=== PATIENT | female | born 1940 | race Caucasian/White ===

== ENCOUNTER 2019-06-17 12:10 | Inpatient (IN) ==
[2019-06-17 13:38] LABS: BASO# 0.06 X1000 (0.0-0.2); BASO% 0.3 % (0.0-0.8); EOS# 0.76 X1000 (0.0-0.7); EOS% 3.5 % (0.0-10.0); HEMATOCRIT 30.3 % (37.0-47.0); HEMOGLOBIN 10.5 g/dL (12.0-16.0); LYMPH# 4.38 X1000 (1.2-3.4); LYMPH% 20.3 % (20.5-51.1); MCH 29.8 PG (27-31); MCHC 34.7 g/dL (33-37); MCV 86.1 FL (81-99); MONO# 1.41 X1000 (0.11-0.59); MONO% 6.5 % (1.7-9.3); MPV 11.4 FL (7.4-10.4); NEUT# 14.98 X1000 (1.4-6.5); NEUT% 69.4 % (42.2-75.2); PLT 265 X1000 (130-400); RBC 3.52 XMIL (4.2-5.4); WBC 21.59 X1000 (4.8-10.8)
--- NOTE | 2019-06-17 14:18 | EKG Report ---
Test Performed on : 06/17/2019 12:29:21 PM Test Reason : ABNORMAL LABS Blood Pressure : / mmHG Vent. Rate : 079 BPM Atrial Rate : 133 BPM P-R Int : 000 ms QRS Dur : 130 ms QT Int : 362 ms P-R-T Axes : 000 -86 050 degrees QTc Int : 415 ms Atrial fibrillation. with occasional ventricular-paced complexes Right bundle branch block Left anterior fascicular block Bifascicular block Abnormal ECG When compared with ECG of 02-DEC-2018 23:33, Vent. rate has increased BY 5 BPM Unconfirmed Result
--- NOTE | 2019-06-17 14:27 | Diag Imaging Result Doc PS360 ---
EXAM: CHEST-1 VIEW 06/17/2019 HISTORY: sepsis TECHNIQUE: AP portable at 1414 COMMENT: There are bilateral pleural fluid collections. There is cardiomegaly. There is alveolar and interstitial pulmonary edema. These findings have worsened since 10/10/2015. IMPRESSION: Pulmonary edema cardiomegaly and pleural effusions. The possibility of superimposed pneumonia cannot be excluded. Electronically signed by Silver Dunaway 06/17/2019 2:25 PM
[2019-06-17 15:04] LABS: ALB/GLOB RATIO 1.3; ALBUMIN 3.5 g/dL (3.5-5.0); CALCIUM 7.3 mg/dL (8.8-10.2); CK INDEX 5.4 (0.0-2.5); CK-MB 9.82 ng/mL (0.0-5.0); CREATININE 3.4 mg/dL (0.5-0.9); POTASSIUM 4.5 mmol/L (3.5-5.1); TOTAL BILIRUBIN 0.43 mg/dL (0.20-1.00); TOTAL PROTEIN 6.1 g/dL (6.3-8.3)
[2019-06-17] MEDS ORDERED: ZOSYN 2.25 GM in NS 50 ML IV ONE (16:11)
[2019-06-17] MEDS ORDERED: XYLOCAINE-MPF 1% 5 ML ONE (16:48)
[2019-06-17 17:16] LABS: CK INDEX 6.1 (0.0-2.5); CK-MB 11.02 ng/mL (0.0-5.0)
[2019-06-17 17:23] LABS: INR 2.35; PROTIME 26.4 Seconds (11.0-16.0)
[2019-06-17 17:24] LABS: PTT 62.6 Seconds (22.3-41.8)
[2019-06-17 18:07] LABS: URINE SOURCE CLEAN CATCH
[2019-06-17 18:11] LABS: BILIRUBIN URINE NEGATIVE (NEGATIVE); BLOOD URINE TRACE (NEGATIVE); COLOR YELLOW; GLUCOSE URINE NEGATIVE (NEGATIVE); KETONE URINE NEGATIVE (NEGATIVE); LEUKOCYTES URINE LARGE (NEGATIVE); NITRITE URINE NEGATIVE (NEGATIVE); PROTEIN URINE NEGATIVE (NEGATIVE); SP GRAVITY URINE 1.006; TURBIDITY URINE HAZY (CLEAR); UR EPITHELIAL CELLS <10 /HPF (<10); URINE BACTERIA NEGATIVE /HPF; URINE RBC <10 /HPF (<10); URINE WBC 20-40 /HPF (<10); UROBILINOGEN URINE NORMAL (NORMAL)
--- NOTE | 2019-06-17 18:47 | PROVIDER DOCUMENTATION ---
This chart was entered by Sudha Tom Scribe, acting as scribe for Mahsa Bush MD. HPI-General Adult - General Chief Complaint: Abnormal Lab[s] Stated Complaint: abnormal labs Time Seen by Provider: 06/17/19 13:21 Source: patient Allergies/Adverse Reactions: Patient Allergies Allergy/AdvReac Type Severity Reaction Status Date / Time captopril [From Capoten] Allergy Severe Unknown Verified 07/19/18 13:44 Latex, Natural Rubber Allergy Severe ITCHING Verified 07/19/18 13:44 AND RASH morphine Allergy Severe ANAPHYLAXIS Verified 07/19/18 13:44 Penicillins Allergy Severe ANAPHYLAXIS Verified 07/19/18 13:44 pyridoxine Allergy Severe Unknown Verified 07/19/18 13:44 Sulfa (Sulfonamide Allergy Severe ITCH Verified 07/19/18 13:44 Antibiotics) adhesive AdvReac Intermediate RASH Verified 07/19/18 13:44 Home Medications: Home Medication List Medication Instructions Recorded Confirmed Last Taken Type Levothyroxine [Synthroid] 100 microgm PO QAM 05/31/13 06/17/19 06/17/19 History 100 MICROGM Ropinirole HCl [Requip] 1 mg PO HS 05/31/13 06/17/19 06/16/19 History 1 MG Digoxin [Digox] 125 mcg PO QAM 10/26/14 06/17/19 06/17/19 History 125 MCG Duloxetine [Cymbalta] 90 mg PO QAM 10/26/14 06/17/19 06/17/19 History 90 MG Potassium Chloride E.r. [Klor-Con] 20 meq PO 4XDAY 12/07/14 06/17/19 06/17/19 History 20 MEQ Esomeprazole [Nexium] 20 mg PO DAILY 01/01/15 06/17/19 06/17/19 History 20 MG Furosemide [Lasix] 80 mg PO BID 11/26/15 06/17/19 06/17/19 History 80 MG Acetaminophen [Pain Relief] 500 mg PO Q4HR PRN 05/30/16 06/17/19 06/16/19 History 500 MG Ascorbic Acid [Vitamin C] 500 mg PO QAM 05/30/16 06/17/19 06/17/19 History 500 MG Docusate Sodium 100 mg PO QAM PRN 09/06/17/19 06/17/19 History 100 MG Latanoprost 0.005% Oph Soln 1 drop BOTH EYES HS 05/30/16 06/17/19 06/17/19 History [Xalatan 0.005% Oph Soln] 1 DROP Lorazepam 1 mg PO QHS 05/30/16 06/17/19 06/16/19 History 1 MG Metolazone 2.5 mg PO QPM 05/30/16 06/17/19 06/17/19 History 2.5 MG Hydrocodone/APAP 5 mg/325 mg 1 each PO Q6H PRN PRN #12 tablet 05/31/16 06/17/19 06/17/19 Rx [[place]-5] 1 EACH Bimatoprost [Lumigan] 2 drp OPHTHALMIC (EYE) DAILY 06/17/19 06/17/19 06/17/19 History 2 DRP Carvedilol [Coreg] 3.125 mg PO BID 06/17/19 06/17/19 06/17/19 History 3.125 MG Cholecalciferol (Vitamin D3) 400 unit PO BID 06/17/19 06/17/19 06/17/19 History [Vitamin D] 400 UNIT Levofloxacin 250 mg PO DAILY 06/17/19 06/17/19 06/17/19 History 250 MG Loratadine 10 mg PO DAILY 06/17/19 06/17/19 06/17/19 History 10 MG Sucralfate [Carafate] 1 gm PO TID 06/17/19 06/17/19 06/17/19 History 1 GM - History of Present Illness -Gen Adult Nature of Presenting Problems: Pt is a 78 yof who presents to the ED via EMS for abnormal labs. EMS reports jail stated pt had abnormal cardiac enzymes. Pt denies chest pain. Reports pain to buttock. Location of Pain/Injury: reports: other (buttock) Onset/Duration: reports: unsure Timing: reports: still present Associated Symptoms: reports: denies symptoms Similar Symptoms Previously?: Yes Recently seen or treated by another doctor?: No Review of Systems - Adult - REVIEW OF SYSTEMS - ADULT Constitutional: reports: no symptoms reported. denies: fever, fatique Eyes: reports: no symptoms reported Ears, Nose, Mouth & Throat: reports: no symptoms reported Cardiovascular: reports: no symptoms reported. denies: chest pain, irregular heart rate, palpitations Respiratory: reports: no symptoms reported Gastrointestinal: reports: no symptoms reported Genitourinary: reports: no symptoms reported Musculoskeletal: reports: no symptoms reported Integumentary: reports: no symptoms reported Neurological: reports: no symptoms reported Psychiatric: reports: no symptoms reported Endocrine: reports: no symptoms reported Hematologic/Lymphatic: reports: no symptoms reported Allergic/Immunologic: reports: no symptoms reported All Other Systems: Reviewed and Negative Past History - Adult - PAST MEDICAL HISTORY-ADULT Review of Records: reports: Old Records Reviewed, Social history reviewed & non- contributory. Major Childhood Illnesses: reports: denies history Cardiovascular: reports: cardiac disease, A-Fib, CHF, pacemaker Respiratory: reports: denies history, sleep apnea Gastrointestinal: reports: GERD, other (gastric bypass) Obstetrical/Gynecological: reports: denies history Genitourinary: reports: denies history Musculoskeletal: reports: denies history Neurological: reports: other (Carpal tunnel) Psychiatric: reports: depression Endocrine/Immune: reports: thyroid disorder (hypothyroid) Other Conditions: reports: denies history - PRIOR SURGERIES/PROCEDURES Surgical/Procedure History: reports: appendectomy, CABG, cholecystectomy, p acemaker, hysterectomy, , tonsillectomy, orthopedic (extremity), joint replacement (hip) - IMMUNIZATION STATUS Childhood Immunizations: See Nurse Assessment Flu Vaccine: See Nurse Assessment - FAMILY HISTORY Family History: reviewed, not pertinent - SOCIAL HISTORY Smoking: cigarettes (former) Substance Use: denies Living Situation: care facility (SNF) Physical Exam-General - PHYSICAL EXAM-ADULT Initial Vital Signs Reviewed: Yes - CONSTITUTIONAL General Appearance: appears well, alert, no apparent distress. negative: lethargic - EYES Eyes: PERRL/EOMI, pink conjunctivae. negative: anisocoria, conjuctival exudate - HEAD, EARS, NOSE, MOUTH & THROAT HENMT: normocephalic/atraumatic, moist mucous membranes - NECK Neck: non-tender, normal inspection - RESPIRATORY Respiratory: chest non-tender, rhonchi. negative: crackles, wheezing - CARDIOVASCULAR Cardiovascular: normal peripheral pulses, regular rate, rhythm. negative: bradycardia, tachycardia - GASTROINTESTINAL (ABDOMEN) Abdominal Exam: normal bowel sounds, non tender, soft, other (tympanic percussion). negative: tenderness - LYMPHATIC Lymphatic: no adenopathy - MUSCULOSKELETAL Back Exam: no CVA tenderness, no vertebral tenderness Extremity: other (Bilateral bunions and hemorrhagic blisters) - SKIN Integumentary: abrasion(s), decubitus (stage 2 skin ulcer to sacral region), ecchymosis, swelling - NEUROLOGIC Neurologic: grossly normal, no motor/sensory deficits. negative: facial droop, focal weakness - PSYCHIATRIC Psych/Mental Status: normal thought content, anxious Progress - PLAN OF CARE/RESULTS Progress/Plan/Lab Results: Vital Signs - 8 hr 06/17/19 12:29 Temperature 97.8 F Pulse Rate 88 Respiratory Rate 16 Blood Pressure 121/60 O2 Sat by Pulse Oximetry 100 Laboratory Results - last 24 hr 06/17/19 06/17/19 13:15 13:15 WBC 21.59 H RBC 3.52 L Hgb 10.5 L Hct 30.3 L MCV 86.1 MCH 29.8 MCHC 34.7 RDW Std Deviation 17.0 H Plt Count 265 MPV 11.4 H Neut % (Auto) 69.4 Lymph % (Auto) 20.3 L [place] % (Auto) 6.5 Eos % (Auto) 3.5 Baso % (Auto) 0.3 Neut # (Auto) 14.98 H Lymph # (Auto) 4.38 H [place] # (Auto) 1.41 H Eos # (Auto) 0.76 H Baso # (Auto) 0.06 Troponin T 0.125 H Orders Category Date Time Status Saline Loc DIRECTED Care 06/17/19 13:21 Active NPO Diet 06/17/19 13:21 Active AMYLASE [CHEM] Stat Lab 06/17/19 13:15 Received BLOOD CULTURE [BLDCUL] Stat Lab 06/17/19 13:15 Ordered CBC WITH ELECTRONIC DIFF [HEME] Stat Lab 06/17/19 13:15 Completed CK PROFILE [SP CHEM] Stat Lab 06/17/19 13:15 Received COMPREHENSIVE METABOLIC PANEL [CHEM] Stat Lab 06/17/19 13:15 Received LIPASE [CHEM] Stat Lab 06/17/19 13:15 Received TROPONIN T Stat Lab 06/17/19 13:15 Completed Result Diagrams: 06/17/19 13:15 06/17/19 13:15 - EKG 1 Time of EKG reading by physician:: 12:29 EKG Read and Signed by:: Mahsa Bush EKG Interpretation (*Must complete 3 of following elements*): Abnormal Rate: 79 Rhythm: atrial fibrillation with occasional ventricular-paced complexes QRS: RBB Comments: left ventricular fascicular block; bifascicular block - XRAY 1 XRAY Study: Chest Impression: See EMR Report (EXAM: CHEST-1 VIEW 06/17/2019 HISTORY: sepsis TECHNIQUE: AP portable at 1414 COMMENT: There are bilateral pleural fluid collections. There is cardiomegaly. There is alveolar and interstitial pulmonary edema. These findings have worsened since 10/10/2015. IMPRESSION: Pulmonary edema cardiomegaly and pleural effusions. The possibility of superimposed pneumonia cannot be excluded. Electronically signed by Silver Dunaway 06/17/2019 2:25 PM 06/17/19 1424 Interpreting Physician: Silver Dunaway MD Dictated Date/Time: 06/17/19 9949 cc: Mahsa Bush MD; Maikel Aguirre) Departure - Departure Date of Disposition Decision: 06/17/19 Time of Disposition Decision: 17:46 DIAGNOSIS: Elevated troponin, Leukocytosis, Renal failure, COPD (chronic obstructive pulmonary disease) Disposition: ADMITTED INPATIENT 09 Certified Medical Emergency: Emergent Condition: Good Referrals and Follow-Ups: Maikel Aguirre [Primary Care Provider] - - Critical Care Note This patient required my direct & personal management of CC.: No Attestation - Physician/ SOPHIE Attestation Patient care was provided by Advanced Practice Provider:: No The physician spent face to face time with patient:: Yes Advanced Practice Provider documentation review:: Supervising physician onsite and consulted in the evaluation and care of this patient. The physician did have a face to face encounter with the patient. This chart was documented by the indicated scribe, (Sudha Tom Scribe) and accurately reflects the services I performed and decisions made by me, Mahsa Bush MD, as attested by the provider's signature.
--- NOTE | 2019-06-17 19:31 | Diag Imaging Result Doc PS360 ---
EXAM: CT THORAX W/O CONTRAST - 06/17/2019 HISTORY: pneumonia TECHNIQUE: CT thorax without contrast. No contrast administered per request the referring provider. COMPARISON: 06/17/2029 chest radiograph FINDINGS: There are moderate bilateral pleural effusions. There is associated dependent/compressive atelectasis of the bilateral lower lobes. There are some calcifications at the right lower lobe from old granulomatous disease or other chronic process. The remainder of the lungs appear essentially clear. There are apparent COPD/emphysematous changes. There is no pneumothorax identified. There are mildly prominent mediastinal lymph nodes. Included sections of upper abdomen show postsurgical changes of gastric bypass, cholecystectomy, and splenectomy, with regenerated splenic nodule at left upper quadrant. IMPRESSION: Moderate bilateral pleural effusions with dependent/compressive atelectasis at the adjacent bilateral lower lobes. Underlying pneumonia in the atelectatic portions of the lower lobes cannot be excluded. The remainder of the lungs appear clear of acute changes. There are some COPD/emphysematous changes. Mild mediastinal adenopathy. This exam was performed using automated exposure control, adjustment of mA or kV according to patient size, and/or use of iterative reconstruction technique. Electronically signed by Munir Nicolas 06/17/2019 7:29 PM
[2019-06-17 20:40] LABS: UR CREAT RANDOM 11.5 mg/dL (11-20)
[2019-06-17] MEDS: ZYVOX 600 MG/D5W 600 MG/300 ML IVPB IV SCH (21:32)
[2019-06-17] MEDS: MAXIPIME 1 GM in NS 50 ML IV SCH (21:34)
[2019-06-17] MEDS ORDERED: COLACE PO PRN (22:20)
[2019-06-17 22:43] LABS: ACETONE SERUM NEGATIVE (NEGATIVE)
[2019-06-17 22:51] LABS: ACETAMINOPHEN 2.5 ug/mL (10-30); SALICYLATES < 3.00 mg/dL (3-10)
--- NOTE | 2019-06-17 23:27 | HISTORY AND PHYSICAL ---
ADDENDUM: HISTORY OF PRESENT ILLNESS: I have seen and examined Ms. Bella Ramirez today. Ms. Ramirez has a history of hypertension, hypothyroidism, CKD, status post mechanical mitral valve replacement and pacemaker. She is a resident of [facility]. I understand Ms. Ramirez went to [facility] about a week ago because of congestive symptoms. She was admitted for about 5 days and discharged home. She was seen today by the medical staff at the rehab and was told that she has abnormal labs, so she needed to come to the emergency room. PHYSICAL EXAMINATION: VITAL SIGNS: Upon presenting to the emergency department, her blood pressure was 121/60, pulse 80, respirations 16, temperature 97.8. EXTREMITIES: Physical exam is remarkable for about 2+ pedal edema. ABDOMEN: Soft, distended. There is an old infraumbilical surgical scar. CHEST: Air entry is bilaterally reduced. There are some crackles in the posterior lung carlos. CARDIOVASCULAR: There is a mechanical mitral click. There is an S1 metallic click and a 2/6 murmur radiating to the neck. The patient also has a positive mild JVD. LABS: Shows a WBC of 21.56. Hemoglobin is 10.5, platelet count of 265. Chemistry is also reviewed. The patient is acidotic with bicarb of 12, gap of 19. BUN is 51, creatinine is up to 3.4. The latest we have in her in our system was in February, which was 2.4. The patient's troponins were also mildly elevated. Pro B is over 33,000. Ms. Ramirez has a CT scan in our system from of last month, which did not show any see any severe abnormalities. A chest x-ray this morning shows pulmonary edema, cardiomegaly and pleural effusion. The possibility of superimposed pneumonia cannot be excluded. ASSESSMENT: 1. Dyspnea on presentation associated with fluid overload manifested by pedal edema and pleural effusions with pulmonary edema. We think this is all related to the heart. Unfortunately, the patient's creatinine seems to be getting worse on p.o. diuretics. We are going to get a CT scan of the chest to have a better idea about the lungs before we embark on any IV Lasix. 2. There is also concern of pneumonia. We will get a CT scan to have a better idea. The patient has already been started on broad-spectrum IV antibiotics. Her white cell count is 21.56. 3. Acute on chronic renal failure. We will get a Tom catheter and get straight inputs and outputs, and follow up on the renal failure on the renal functions. We will also do urine studies. 4. Mildly [id number] metabolic acidosis. We will do some labs to rule out any acetone or salicylates. So far, the lactate is normal, so I presume this is just reflective of the degree of her renal failure. 5. Elevated troponins. EKG does not show any acute ST-segment abnormality. Will continue tracking this, and will get Cardiology to see her in the morning. 6. History of mechanical mitral mechanical valve replacement. The patient is on Coumadin for anticoagulation. INR is 2.35. We will prefer this to be between 2.5 to 3.5. Please refer to the details of the history and physical, which have been dictated in the chart per the nurse practitioner. cc: Gonzalez Anderson MD
[2019-06-18] MEDS: REQUIP PO SCH ×2 (00:25→20:35)
[2019-06-18] MEDS: ATIVAN PO SCH ×2 (00:25→20:34)
[2019-06-18] MEDS: XALATAN 0.005% OPH SOLN BOTH EYES SCH ×2 (00:26→22:02)
[2019-06-18] MEDS: COREG PO SCH ×3 (00:26→20:35)
[2019-06-18] MEDS: VITAMIN D PO SCH ×3 (00:29→20:34)
[2019-06-18 03:25] LABS: BASO# 0.05 X1000 (0.0-0.2); BASO% 0.3 % (0.0-0.8); EOS# 0.76 X1000 (0.0-0.7); EOS% 4.3 % (0.0-10.0); HEMATOCRIT 26.6 % (37.0-47.0); IMM GRAN% 0.6 % (0.0-0.5); LYMPH# 3.15 X1000 (1.2-3.4); LYMPH% 17.9 % (20.5-51.1); MCH 28.7 PG (27-31); MCHC 33.8 g/dL (33-37); MCV 84.7 FL (81-99); MONO# 1.22 X1000 (0.11-0.59); MONO% 6.9 % (1.7-9.3); MPV 11.9 FL (7.4-10.4); NEUT# 12.36 X1000 (1.4-6.5); PLT 231 X1000 (130-400); RBC 3.14 XMIL (4.2-5.4); RDW 16.6 % (11.5-14.5); WBC 17.64 X1000 (4.8-10.8)
[2019-06-18 04:12] LABS: ALBUMIN 2.7 g/dL (3.5-5.0); CALCIUM 6.9 mg/dL (8.8-10.2); CREATININE 3.3 mg/dL (0.5-0.9); MAGNESIUM 1.3 mg/dL (1.5-2.7); POTASSIUM 4.2 mmol/L (3.5-5.1); TOTAL BILIRUBIN 0.42 mg/dL (0.20-1.00); TOTAL PROTEIN 5.4 g/dL (6.3-8.3)
[2019-06-18] MEDS ORDERED: CALCIUM GLUCONATE 1 GM in NS 50 ML IV ONE (05:41)
[2019-06-18] MEDS ORDERED: MAGNESIUM SULFATE 1 GM/D5W 1 GM/100 ML IVPB IV ONE (05:41)
[2019-06-18 05:43] LABS: INR 2.21; PROTIME 25.1 Seconds (11.0-16.0)
[2019-06-18] MEDS: MAXIPIME 1 GM in NS 50 ML IV SCH ×2 (06:21→20:34)
[2019-06-18] MEDS: PRILOSEC PO SCH (06:23)
[2019-06-18] MEDS: SYNTHROID PO SCH (06:23)
[2019-06-18] MEDS: VITAMIN C PO SCH (09:14)
[2019-06-18] MEDS: LANOXIN PO SCH (09:15)
[2019-06-18] MEDS: CYMBALTA PO SCH (09:17)
[2019-06-18] MEDS: ZYVOX 600 MG/D5W 600 MG/300 ML IVPB IV SCH ×2 (09:20→20:34)
[2019-06-18] MEDS: LUMIGAN 0.01% OPH SOLUTION OPH SCH (09:23)
[2019-06-18 10:23] LABS: URINE SOURCE CATH
[2019-06-18 10:25] LABS: BILIRUBIN URINE NEGATIVE (NEGATIVE); BLOOD URINE TRACE (NEGATIVE); COLOR YELLOW; GLUCOSE URINE NEGATIVE (NEGATIVE); KETONE URINE NEGATIVE (NEGATIVE); LEUKOCYTES URINE SMALL (NEGATIVE); NITRITE URINE NEGATIVE (NEGATIVE); PROTEIN URINE NEGATIVE (NEGATIVE); SP GRAVITY URINE 1.007; TURBIDITY URINE CLEAR (CLEAR); UROBILINOGEN URINE NORMAL (NORMAL)
[2019-06-18 10:27] LABS: UR EPITHELIAL CELLS <10 /HPF (<10); URINE BACTERIA NEGATIVE /HPF; URINE RBC <10 /HPF (<10)
[2019-06-18] MEDS ORDERED: LASIX PO SCH (10:45)
[2019-06-18] MEDS ORDERED: LASIX IV SCH (10:45)
--- NOTE | 2019-06-18 11:08 | CARDIOLOGY CONSULTATION ---
DATE: 06/18/2019 HISTORY OF PRESENT ILLNESS: This is a 78-year-old lady who was seen today who was transferred from [facility] [place] with increasing shortness of breath and cough. She has known history of chronic kidney disease, mechanical mitral valve replacement, a permanent pacemaker, atrial fibrillation, was discharged home 5 days back. Subsequently, she went to the rehab facility and came back with increasing shortness of breath and cough with expectoration. She had a CT scan done which revealed atelectasis versus pneumonia with pleural effusions. She denies chest pain suggestive of angina. She has noticed increasing pedal edema. She has history of frequent falls as well. REVIEW OF SYSTEMS: A 14-point review of system was done.GI: There is no history of nausea. There is no history of vomiting or diarrhea. There is no history of hematemesis or melena. Central nervous system: No focal weakness to suggest a CVA, TIA. : There is no dysuria. PAST MEDICAL HISTORY: 1. Mechanical mitral valve replacement. 2. [employer] pacemaker implanted 12/31/2011. 3. Chronic atrial fibrillation. 4. History of syncope. 5. History of frequent falls. 6. Fractured femur in the past. 7. Cardiomegaly. 8. Aortic stenosis. 9. Hypothyroidism. 10. Carotid bruit. 11. Bilateral edema. 12. Arthritis. HOME MEDICATIONS: Omeprazole 20 mg a day, Estrogen energy tablets, Lasix 80 mg b.i.d., hydrocodone as needed, latanoprost ophthalmic eye drops, Synthroid 100 mcg a day, Zaroxolyn 2.5 mg once daily, Trileptal 150 mg at bedtime, potassium supplements, ropinirole 1 mg at bedtime, Aldactone 50 mg daily, olanzapine 5 mg, multivitamins, Prolia, Coumadin 5 mg, digoxin 0.125 mg, duloxetine 30 plus 60 mg daily, sucralfate. ALLERGIES: She is allergic to penicillin, Capoten, sulfonamides, morphine, latex and plastic tapes. PHYSICAL EXAMINATION: Vital Signs: Blood pressure was 103/41. Heart: Mechanical valve sounds were heard. Jugular venous pressure mildly elevated. Systolic murmur noted. Respiratory: Dullness at the base with scattered crepitations. Abdomen: Soft, nontender. There was no guarding or rigidity. Bowel sounds were heard. Central nervous system: Alert, was moving all 4 extremities. Extremities: Examination of extremities revealed bilateral 2 to 3+ pitting edema. LABORATORY EXAMINATION: Laboratory examination revealed chemistry with sodium 138, potassium 4.2, BUN 48, creatinine 3.3. Troponin abnormal at 0.1. Calcium was low at 6.9. Other troponin was 0.125 and 0.105. INR was 2.35. WBC when she was admitted was 21.59, hemoglobin 10.5, hematocrit 30, platelet count off 265. CT scan of her chest was done which revealed bilateral atelectasis in the lower lobes, with underlying pneumonia cannot be excluded. She had moderate bilateral pleural effusion. ASSESSMENT AND PLAN: Ms. Bella Ramirez is a 78-year-old lady who was admitted for 5 days. Subsequently went to the [facility] and is back in the hospital with increasing shortness of breath and cough as well. She has been admitted with heart failure and pneumonia, started on antibiotics. Denies any chest pain. She has multiple medical problems in addition to mechanical mitral valve replacement, permanent pacemaker implantation, chronic atrial fibrillation, hypothyroidism, history of frequent falls. Has also noticed increasing pedal edema. She has chronic renal insufficiency. From a cardiac standpoint, we will get an echocardiogram to assess cardiac and valvular function. 1. Abnormal cardiac enzymes. Probably, multifactorial. She does not complain of any chest pain. It is related to chronic renal insufficiency likely. 2. Pneumonia. Continue with the antibiotics. 3. She has been on a combination of Lasix, Aldactone and metolazone at home, and I will put her on Lasix 80 mg IV 1 dose now and daily and consult Nephrology as well. 4. Anticoagulation therapy. She has a mechanical valve, and she takes Coumadin 5 mg a day. We will restart and check her INR levels. 5. Last echocardiogram in 2016 and ejection fraction was 60%. She has diastolic heart failure which is again multifactorial as well. 6. She is on multiple other medications. I have not made any changes. Thank you for the consult. cc: Doug Quintanilla MD
[2019-06-18] MEDS: LASIX IV SCH ×2 (11:24→20:35)
--- NOTE | 2019-06-18 13:12 | PROGRESS NOTE ---
DATE: 06/18/2019 SUBJECTIVE: Today Ms. Ramirez refers to be doing slightly better. Denies any new complaints. OBJECTIVE: Vital signs: Blood pressure is 103/41, pulse of 68, respirations 17, temperature 97.5 degrees. General: Ms. Ramirez is a 79-year-old elderly female. She is in bed. She is not in any obvious distress. Mucosa is pink and moist. Anicteric. Acyanotic. Neck: Supple. There is positive JVD. Chest: Air entry is bilaterally reduced. There are crackles in posterior lung carlos. Cardiovascular: Regular rate with metallic S1 click. There is also about a 2/6 murmur. GI: Abdomen is soft, nontender. Bowel sounds present. Extremities: About 2+ pedal edema. [facility]: Patient is awake, alert, and oriented. DIAGNOSTIC STUDIES: The patient CT scan of the chest yesterday did show moderate bilateral pleural effusions with dependent/compressive atelectasis at the adjacent bilateral lower lobes. Underlying pneumonia in the atelectatic portion of the lobes cannot be excluded. There was also COPD, emphysematous changes. Troponins have been fairly up, but stable. ASSESSMENT: 1. Respiratory distress on presentation secondary to pleural effusions and pulmonary edema. 2. Congestive heart failure, presumably diastolic. 3. Bibasilar lung infiltrates, concerning for atelectasis versus pneumonia. Patient is on antimicrobial therapy. White cell count is trending down. 4. Acute on chronic renal failure with fraction excretion of BUN more than 50 which is consistent with intrarenal disease. Nephrology has been consulted. 5. Elevated troponin, presumably from demand ischemia. Patient has been evaluated by Cardiology. 6. Status post mechanical mitral valve replacement. Patient is on Coumadin. INR is 2.21 this morning. Cardiology has placed the patient on 5 mg of Coumadin. cc: Gonzalez Anderson MD
[2019-06-18] MEDS: TYLENOL PO PRN (13:42)
--- NOTE | 2019-06-18 15:54 | ECHO REPORT ---
ORDER DATE: 06/18/2019 ECHOCARDIOGRAPHIC MEASUREMENTS: 1. Interventricular septum 1.1. 2. Left ventricular posterior wall 1.1. 3. Diastolic diameter 3.6. 4. Left atrium 3.7. 5. Aorta 3.7. SUMMARY: 1. Technically suboptimal study. 2. Mechanical valve in the mitral position was stable. 3. Aortic valve leaflets were calcified. 4. Pulmonic valve was normal. 5. Tricuspid valve was normal. Normal left ventricular cavity size. Estimated ejection fraction of 70%. Pacing leads are noted in the right chamber. There is moderate tricuspid regurgitation. Peak velocity across the tricuspid valve was 3 m/sec. 6. Pulmonary artery systolic pressure of 50 mmHg. 7. Peak velocity across the aortic valve was 3.9 m/sec with a maximum gradient of 62 mmHg. Mean gradient of 37 mmHg. There is at least severe aortic stenosis associated with moderate to severe aortic regurgitation. However, would recommend transesophageal echocardiogram to evaluate the aortic valve as outflow tract measurements to calculate the aortic valve area by VTI are not possible given the adjoining mechanical mitral valve replacement. 8. There is mild mitral regurgitation. 9. Mean gradient across the mitral valve was 6 mmHg with a mitral valve inflow velocity of 1.9 m/sec. 10. Mitral valve area by pressure half time not obtained, however, the mechanical mitral valve was functioning appropriately. 11. There is no pericardial effusion. cc: MD Gonzalez Small MD
--- NOTE | 2019-06-18 18:12 | NEPHROLOGY CONSULTATION ---
DATE: 06/18/2019 REASON FOR CONSULTATION: Renal failure and volume overload. HISTORY OF PRESENT ILLNESS: Ms. Ramirez is a 78-year-old white female who resides in [facility] intermediate facility in [place]. She is cared for by Dr. Walton at the half-way as her primary provider. He actually called me about her approximately 2 months ago stating that her renal function had been deteriorating. She was seen 1 time in the office and I ordered a CT scan of the abdomen but it has not yet been performed. She has been dealing with worsening fluid overload with swelling, shortness of breath, dyspnea with exertion. Her symptoms have been progressively worsening and this resulted in a hospitalization in [facility]. She states she did not improve significantly in fact worsened and therefore came to the hospital in [place]. Her appetite is decreased but stable. No nausea or vomiting. PAST MEDICAL HISTORY: 1. Congestive heart failure. 2. Atrial fibrillation. 3. Chronic kidney disease. 4. Hypothyroidism. HOME MEDICATIONS: Include ropinirole, levothyroxine, duloxetine, digoxin, potassium, esomeprazole, furosemide, acetaminophen, ascorbic acid, metolazone, lorazepam, latanoprost drops, hydrocodone, carvedilol, levofloxacin, loratadine, [place], vitamin D3. ALLERGIES: Multiple as listed. SOCIAL HISTORY: As above. FAMILY HISTORY/REVIEW OF SYSTEMS: Otherwise noncontributory. PHYSICAL EXAMINATION: Vital Signs: Blood pressure 103/41, heart rate 68, respirations 17, afebrile. General: Frail, thin, elderly woman lying in bed. No acute distress. She is awake, alert, appropriate and oriented. Skin: Warm and dry, thin with multiple ecchymoses. HEENT: Conjunctivae are pale and moist. Pupils are equal and round. Oropharynx is moist. Dentures present. Neck: Supple. Neck vein distention is difficult to appreciate. Heart: Irregular with mechanical heart tones and a murmur. Lungs: Have equal breath sounds. No crackles or wheezes. Abdomen: Soft, nontender. Bowel sounds present. Extremities: 2+ edema. No clubbing or cyanosis. IMPRESSION: Progressive chronic kidney disease. Baseline creatinine was 1.5 last year but she is a very small woman with very low muscle mass. Her calculated GFR at that time was 34 but that likely is an overestimate. Likely she has stage 5 disease at this point. We will check renal ultrasound to exclude obstruction but there is unlikely to be any reversible causes. As such, we will focus on her volume management but she would be a poor candidate for renal replacement therapy because of her severely impaired functional status. As such, it will not be offered. I will observe over the weekend. cc: Hossein Carbajal MD
[2019-06-18] MEDS ORDERED: COUMADIN PO SCH (21:00)
[2019-06-19] MEDS: TYLENOL PO PRN ×3 (03:55→16:54)
[2019-06-19] MEDS: SYNTHROID PO SCH (06:17)
[2019-06-19] MEDS: PRILOSEC PO SCH (06:17)
[2019-06-19 06:41] LABS: INR 1.99; PROTIME 23.1 Seconds (11.0-16.0)
[2019-06-19 07:14] LABS: CREATININE 3.4 mg/dL (0.5-0.9); MAGNESIUM 1.4 mg/dL (1.5-2.7); POTASSIUM 4.2 mmol/L (3.5-5.1)
[2019-06-19] MEDS: VITAMIN C PO SCH (09:23)
[2019-06-19] MEDS: VITAMIN D PO SCH ×2 (09:23→21:51)
[2019-06-19] MEDS: LANOXIN PO SCH (09:24)
[2019-06-19] MEDS: COREG PO SCH ×2 (09:24→21:52)
[2019-06-19] MEDS: LUMIGAN 0.01% OPH SOLUTION OPH SCH (09:26)
[2019-06-19] MEDS: LASIX IV SCH (09:27)
[2019-06-19] MEDS: CYMBALTA PO SCH (09:33)
[2019-06-19] MEDS: ZYVOX 600 MG/D5W 600 MG/300 ML IVPB IV SCH (09:33)
[2019-06-19] MEDS: MAXIPIME 1 GM in NS 50 ML IV SCH (09:33)
[2019-06-19] MEDS ORDERED: MAGNESIUM SULFATE 4 GM/S.W.I. 4 GM/100 ML IVPB IV ONE ×2 (09:40→10:27)
--- NOTE | 2019-06-19 09:42 | Diag Imaging Result Doc PS360 ---
US RENAL 2 (RETROPER) COMPLETE - 06/19/2019 INDICATION: decreased renal function TECHNIQUE: COMPARISON: 05/31/2019 FINDINGS: The background renal echotexture is quite hyperechoic suggesting chronic medical renal disease. There are some small left renal cysts measuring up to 1.6 cm. No hydronephrosis. Urinary bladder is collapsed by a Tom catheter and otherwise appears normal. The renal sizes are a bit small. The right kidney measures 9.2 x 4.2 x 4.4 cm. The left kidney measures 9 x 4.2 x 4.4 cm. IMPRESSION: Mild bilateral renal atrophy. Hyperechoic kidneys suggesting chronic medical renal disease. Electronically signed by Gabriel Chaudhry 06/19/2019 9:39 AM
--- NOTE | 2019-06-19 11:37 | CARDIOLOGY PROGRESS NOTE ---
DATE: 06/19/2019 CHIEF COMPLAINT: Shortness of breath. SUBJECTIVE: Ms. Ramirez is feeling somewhat better. She is not having any pain. Her breathing is more comfortable. This morning, she had adrenal ultrasound that shows mild bilateral renal atrophy with hyperechoic kidneys suggesting chronic kidney disease. OBJECTIVE: Vital signs: This morning, blood pressure is 99/38, temperature 97.6, pulse 80, respirations 16. She is awake, in no distress. HEENT is unremarkable. Chest: Diminished breath sounds diffusely, especially at the bases. Heart sounds are regular and rhythmic with a systolic click consistent with normal function of mechanical mitral valve. Abdomen is nontender. Extremities showed edema 1 to 2 plus with some ecchymotic area in the left leg. Neurologic: Follows commands. Moves all 4 extremities. DIAGNOSTIC DATA: Blood work showed sodium 136, potassium 4.2, BUN is 46, creatinine 3.4. Her estimated GFR is 13 mL per minute. Magnesium is 1.4. Her INR is 1.99. IMPRESSION: 1. The patient presented with increasing dyspnea consistent with heart failure. This appears to be systolic and diastolic heart failure. She is status post mitral valve replacement. She is also a patient that has history of atrial fibrillation, status post dual chamber pacemaker implantation. 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 3. Question of pneumonia. 4. Elevated cardiac enzymes in the setting of chronic kidney disease. Her troponin peaked at 0.125 on 06/17/2019 and now is down to 0.097. CPK also peaked at 183 on admission and is down to 95. 5. Her EKG shows no ischemic changes with a pattern of ventricular paced complexes. 6. Chest x-ray on admission showed pulmonary edema and pleural effusions. Chest CT showed moderate bilateral pleural effusions with compressive atelectasis of the bilateral lower lobes. Pneumonia could not be excluded. RECOMMENDATIONS: At this time, we will continue present supportive measures as outlined by Dr. Quintanilla, and we will observe her hospital course. We will probably replace her magnesium since it is low. Further intervention will depend on her clinical course. Thank you for the opportunity to participate in her evaluation. cc: Jack Segal MD
[2019-06-19 11:41] LABS: CALCIUM 7.2 mg/dL (8.8-10.2); PHOSPHORUS 3.3 mg/dL (2.7-4.5)
[2019-06-19] MEDS: SODIUM BICARBONATE PO SCH ×2 (12:14→21:49)
--- NOTE | 2019-06-19 14:43 | NEPHROLOGY PROGRESS NOTE ---
DATE: 06/19/2019 SUBJECTIVE: She is lying in bed. Feels like her breathing is improved. No pain, no dyspnea. OBJECTIVE: Vital Signs: Blood pressure 99/38, heart rate 90, respirations 16, afebrile. Intake 400 mL. Output 2.3 L and there was over 1 L of urine in the bag at the time of my exam. Generally: Frail, elderly woman, no acute distress. Skin: Warm and dry. Neck: Neck veins are not visible. Heart: Regular with murmur. Lungs: Equal. No crackles. Abdomen: Soft. Bowel sounds present. Extremities: 2+ edema. No clubbing or cyanosis. IMPRESSION: Chronic kidney disease stage 5. Labs are stable. She underwent kidney ultrasound this morning, which showed bilateral atrophy and hyperechoic kidneys. 9 cm. No obstruction. Again, she is really not a candidate for renal replacement therapy. She does have significant metabolic acidosis with a serum bicarbonate of 11. She is receiving sodium bicarbonate 1300 mg b.i.d. cc: Hossein Carbajal MD
--- NOTE | 2019-06-19 15:00 | PROGRESS NOTE ---
DATE: 06/19/2019 SUBJECTIVE: This morning Ms. Ramirez referred to be doing fairly okay. She thinks her breathing is significantly improved and her swelling is getting down. OBJECTIVE: Vital signs: Blood pressure is 126/34, pulse of 78, respiration is 18, temperature 97.6 degrees. General: Ms. Ramirez is 78 years old, elderly female. She is in bed. Not seemingly distressed. Mucosa is pink and moist. Anicteric. Acyanotic. Neck: Supple. I think there was some mild JVD. Chest: Air entry was bilaterally reduced. There are still some crackles in the posterior lung carlos. Cardiovascular: Regular rate and rhythm. There is a metallic S1 click at the mitral valve area. There is also about 2/6 early systolic murmur on the 2nd intercostal space on the right side radiating to the neck. Extremities: About 1+ pedal edema. 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 LABORATORY DATA: INR was about 1.99 today. Chemistry revealed bicarb of 11 with a gap of 21. Patient creatinine is up to 3.4, magnesium is 1.4, PTH intact is 722. The patient I O, urine output was about 1350. Patient is currently negative balance of 1850. IMAGING STUDIES: No imaging studies today except for the renal ultrasound, which shows mild bilateral renal atrophy suggestive of chronic medical renal disease. ASSESSMENT: 1. Respiratory distress on presentation secondary to pleural effusions, pulmonary edema, and atelectasis. 2. Congestive heart failure, presumably with preserved ejection fraction. Patient seems to be diuresing well. Congestion is improving. 3. Bibasilar lung infiltrate concerning for atelectasis versus pneumonia. The patient's white cell count was trending down yesterday. We will continue with the current antimicrobial therapy. However, I understand Ms. Ramirez has difficult IV access so will switch this to p.o. 4. Acute on chronic renal failure. The patient seems to be actually in stage 4 to 5 renal failure. She, however, seems to be making adequate urine on the diuretic therapy. We will continue to observe. Nephrology is also on board. 5. Elevated troponin, most likely due to demand ischemia. Cardiology is on board. 6. Status post mechanical mitral valve replacement. The patient is on Coumadin therapy. INR this morning was 1.99, which is remarkably subtherapeutic. We are going to give Ms. Ramirez 10 mg of Coumadin for 2 days in a row and recheck the INR. 7. Secondary hyperparathyroidism, most likely due to underlying renal failure. We will start Ms. Ramirez on cinacalcet. 8. Mild high anion gap metabolic acidosis. I think this is secondary to the degree of the renal failure. We are going to start the patient on oral bicarb replacement and follow this up accordingly. 9. Hypomagnesemia. Will replace it. So, in general, I think Ms. Ramirez seems to be medically stable. She is diuresing well. Congestive symptoms seem to be improving. She does have a lot of electro mineral abnormalities which will all be replaced. We will switch all her medications to p.o. because she has very hard access. I do not really want to put any PICC line because of possibility of dialysis. If we definitely do need an IV access we will get surgery to put in a central line. cc: Gonzalez Anderson MD MTDD
[2019-06-19] MEDS ORDERED: COUMADIN PO SCH (21:00)
[2019-06-19] MEDS: XALATAN 0.005% OPH SOLN BOTH EYES SCH (21:49)
[2019-06-19] MEDS: SENSIPAR PO SCH (21:50)
[2019-06-19] MEDS: REQUIP PO SCH (21:50)
[2019-06-19] MEDS: ATIVAN PO SCH (21:50)
[2019-06-19] MEDS: LASIX PO SCH (21:51)
[2019-06-19] MEDS: OMNICEF PO SCH (21:51)
[2019-06-19] MEDS: MAG-OX PO SCH (21:51)
[2019-06-19] MEDS: ZYVOX PO SCH (21:52)
[2019-06-20] MEDS: TYLENOL PO PRN ×3 (02:57→16:10)
[2019-06-20] MEDS: SYNTHROID PO SCH (06:09)
[2019-06-20] MEDS: PRILOSEC PO SCH (06:09)
[2019-06-20 06:30] LABS: INR 2.28; PROTIME 25.7 Seconds (11.0-16.0)
[2019-06-20 06:55] LABS: CALCIUM 7.1 mg/dL (8.8-10.2); CREATININE 3.2 mg/dL (0.5-0.9); MAGNESIUM 1.5 mg/dL (1.5-2.7); POTASSIUM 3.6 mmol/L (3.5-5.1)
[2019-06-20] MEDS: MAG-OX PO SCH ×2 (08:18→21:00)
[2019-06-20] MEDS: LANOXIN PO SCH (08:18)
[2019-06-20] MEDS: LASIX PO SCH ×2 (08:18→21:01)
[2019-06-20] MEDS: CYMBALTA PO SCH (08:18)
[2019-06-20] MEDS: ZYVOX PO SCH ×2 (08:18→21:01)
[2019-06-20] MEDS: VITAMIN D PO SCH ×2 (08:18→21:01)
[2019-06-20] MEDS: SENSIPAR PO SCH ×2 (08:18→21:01)
[2019-06-20] MEDS: SODIUM BICARBONATE PO SCH ×2 (08:18→21:00)
[2019-06-20] MEDS: VITAMIN C PO SCH (08:18)
[2019-06-20] MEDS: OMNICEF PO SCH ×2 (08:18→21:01)
[2019-06-20] MEDS: COREG PO SCH ×2 (08:18→21:01)
[2019-06-20] MEDS: LUMIGAN 0.01% OPH SOLUTION OPH SCH (08:19)
--- NOTE | 2019-06-20 10:27 | PROGRESS NOTE ---
DATE: 06/20/2019 SUBJECTIVE: This morning, Ms. Ramirez refers to be doing okay. She denies any new complaints and she has been saturating well on very minimal oxygen. OBJECTIVE: Vital Signs: Blood pressure is 104/89, pulse is 88, respirations are 18, temperature is 97.7 degrees, patient is saturating 100% on 2 L. General Examination: Ms. Ramirez is a 78- year-old, female. She is in bed. She is not in any distress. HEENT: Mucosa is pink and moist. Anicteric. Acyanotic. Neck: Supple. No JVD. Chest: Air entry is bilaterally reduced. Minimal crackles in the posterior lung carlos. Cardiovascular: Regular rate and rhythm. There is an S1 metallic click at the mitral valve area. There is also a 2/6 early systolic murmur in the second intercostal space on the right, at the right base radiating to the neck. Extremities: Trace pedal edema. Abdomen: Soft, nontender. Bowel sounds present. CLINICAL MANAGER HOME CARE: The patient is awake, alert, and oriented. The patient has a Tom catheter in place. Is and Os: Urine output has been 4000. Patient is currently negative balance of 4020. No imaging studies today. Laboratory Data: Renal function test shows sodium is 135, potassium is 3.6, chloride is 99, bicarb is 18, gap is down to 18, the patient's creatinine is 3.2. Current medications have all been reviewed. No changes. ASSESSMENT: 1. Respiratory distress on presentation secondary to pleural effusions, pulmonary edema, and atelectasis. The patient seems to be back to her baseline and she is saturating almost 100% on just 2 L. 2. Congestive heart failure with preserved ejection fraction. The patient seems almost euvolemic at this point. She has been negative balance of 4020 during the hospital course. 3. Bibasilar lung infiltrate concerning for atelectasis versus pneumonia. Patient is on oral Zyvox and cefdinir. We plan to treat this for a total of 7 days. End of therapy will be 06/24/2019. 4. Chronic kidney disease stage 5. As per nephrology documentation, the patient seems to be doing well in terms of urine output. 5. Elevated troponins on admission, most likely due to demand ischemia versus under-secretion due to renal failure. Cardiology is on board. Patient currently denies any chest pain. 6. Status post mechanical mitral valve replacement with chronic Coumadin anticoagulation. INR this morning is 2.28. The patient had 10 mg yesterday so we are going to reduce the dose to 5 mg tonight. 7. Secondary hyperparathyroidism, likely due to underlying renal failure. Patient has been started on cinacalcet. 8. Metabolic acidosis, most likely due to the degree of the renal failure. Patient has been started on oral bicarb and the serum bicarb has significantly improved. 9. Wheelchair-bound from the [facility], noted. PLAN: In general, Ms. Ramirez seems to be doing remarkably well. I think she came in with evidence of fluid overload associated with respiratory distress from pulmonary edema. She has been adequately diuresed. This morning, she refers to be feeling a whole lot better. She is almost euvolemic. The diuretics have all been changed and her medications have all been changed to p.o. due to poor IV access. Per nephrology documentation, she does not seem to be a candidate for renal replacement therapy. We are going to continue with the oral management and hopefully, I think we will be able to discharge Ms. Ramirez back to the [facility] tomorrow. cc: Gonzalez Anderson MD
--- NOTE | 2019-06-20 10:46 | CARDIOLOGY PROGRESS NOTE ---
DATE: 06/20/2019 CHIEF COMPLAINT: Shortness of breath. SUBJECTIVE: Ms. Ramirez is feeling just about the same today. She is complaining of pain in both legs. She is not having any chest pain. OBJECTIVE: Blood pressure is 104/89, temperature 97.7, pulse 88, respirations 18. She is awake, chronically ill appearing. HEENT: No significant jugular venous distention. Chest shows slightly diminished breath sounds bilaterally. Heart sounds are slightly irregular. Closing click of mitral valve is noted with a prominent systolic murmur 3/6 in intensity. That is over the aortic area. Abdomen is nontender. Extremities showed 1+ bilateral edema. Neurologic: Follows commands. Moves all 4 extremities. DIAGNOSTIC DATA: Her INR today is 2.28. Sodium 135, potassium 3.6, BUN is 47, creatinine 3.2, calcium 7.1, magnesium 1.5. Her parathyroid hormone level is very high at 722 picograms per mL, normal is 65. IMPRESSION: 1. The patient presented with increasing dyspnea. She does have technically diastolic heart failure which is chronic; however, she also has severe valvular disease with previous mitral valve replacement and now moderate to probably severe degree of aortic valvular stenosis. 2. History of persistent or permanent atrial fibrillation. 3. Status post permanent pacemaker. 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 5. Question of subendocardial ischemia based on troponin level abnormality. 6. Abnormal chest x-ray with pleural effusions. 7. Significant chronic kidney disease. Her GFR by the creatinine level is estimated at 14 mL per minute. RECOMMENDATIONS: At this time, we will continue present course of action. We may have to discuss with primary service and Dr. Carbajal whether or not this patient is somebody who would be a reasonable candidate for hemodialysis to optimize her volume status. Her prognosis is really very guarded. She has secondary hypoparathyroidism that appears to be significant. We will follow her. cc: Jack Segal MD
[2019-06-20] MEDS ORDERED: COUMADIN PO SCH (21:00)
[2019-06-20] MEDS: REQUIP PO SCH (21:01)
[2019-06-20] MEDS: XALATAN 0.005% OPH SOLN BOTH EYES SCH (21:01)
[2019-06-20] MEDS: ATIVAN PO SCH (21:01)
[2019-06-21] MEDS: TYLENOL PO PRN (03:20)
[2019-06-21] MEDS: SYNTHROID PO SCH (06:05)
[2019-06-21] MEDS: PRILOSEC PO SCH (06:05)
[2019-06-21 06:31] LABS: INR 3.46; PROTIME 35.9 Seconds (11.0-16.0)
[2019-06-21 06:50] LABS: CREATININE 3.3 mg/dL (0.5-0.9); MAGNESIUM 1.5 mg/dL (1.5-2.7); POTASSIUM 3.3 mmol/L (3.5-5.1)
[2019-06-21 06:53] LABS: CALCIUM 6.9 mg/dL (8.8-10.2)
[2019-06-21] MEDS: SENSIPAR PO SCH (08:24)
[2019-06-21] MEDS: COREG PO SCH (08:24)
[2019-06-21] MEDS: VITAMIN C PO SCH (08:24)
[2019-06-21] MEDS: OMNICEF PO SCH (08:24)
[2019-06-21] MEDS: VITAMIN D PO SCH (08:24)
[2019-06-21] MEDS: SODIUM BICARBONATE PO SCH (08:24)
[2019-06-21] MEDS: CYMBALTA PO SCH (08:24)
[2019-06-21] MEDS: LANOXIN PO SCH (08:24)
[2019-06-21] MEDS: LASIX PO SCH (08:24)
[2019-06-21] MEDS: MAG-OX PO SCH (08:24)
[2019-06-21] MEDS: LUMIGAN 0.01% OPH SOLUTION OPH SCH (08:25)
[2019-06-21] MEDS ORDERED: CALCIUM GLUCONATE 2 GM in NS 100 ML IV ONE (08:34)
[2019-06-21] MEDS: ZYVOX PO SCH (09:34)
[2019-06-21] MEDS ORDERED: KLOR-CON PO ONE (09:57)
[2019-06-21 12:34] VITALS: BP 98/43
--- NOTE | 2019-06-21 12:38 | Diag Imaging Result Doc PS360 ---
EXAM: CT THORAX W/O CONTRAST INDICATION: Dyspnea, reevaluate effusions, pneumonia TECHNIQUE: This exam was performed using automated exposure control, adjustment of mA or kV according to patient size, and/or use of iterative reconstruction technique. COMPARISON: 06/17/2019 FINDINGS: Bilateral moderate-sized pleural effusions are again noted. The effusion on the left is probably slightly smaller. The effusion on the right is unchanged. Associated adjacent atelectasis is essentially stable. No new consolidation is appreciated. Shotty mediastinal lymph nodes are unchanged. No new lymphadenopathy is appreciated. There is fluid and air in the esophagus suggesting gastroesophageal reflux. However, it is similar to the previous study. The mediastinum is essentially unchanged. The upper abdomen is stable. IMPRESSION: Marginal decrease in size of the left pleural effusion. Grossly stable as compared to the very recent prior study, otherwise. Electronically signed by Arturo Zhou 06/21/2019 12:35 PM
--- NOTE | 2019-06-21 14:21 | DISCHARGE SUMMARY ---
ADMISSION DATE: 06/17/2019 DISCHARGE DATE: 06/21/2019 DISPOSITION: Back to [facility]. FOLLOWUP: 1. Dr. Jamison. 2. Dr. Quintanilla. 3. Dr. Carbajal. INVASIVE PROCEDURES DONE DURING THIS ADMISSION: None. CONSULTATIONS DURING THIS ADMISSION: 1. Cardiology was consulted. Patient was seen by Dr. Quintanilla. 2. Nephrology was consulted. Patient was seen by Dr. Carbajal. IMAGING STUDIES OF SIGNIFICANCE: 1. A chest x-ray did show pulmonary edema, pleural effusion, possibility of superimposed pneumonia. 2. CT scan of the chest shows moderate bilateral pleural effusion with compressive atelectasis at the adjacent bilateral lower lobes. Underlying pneumonia is possible. COPD changes. 3. Echocardiogram shows an ejection fraction of 70%, severe aortic stenosis associated with moderate to severe aortic regurgitation. 4. Repeat CAT scan showed marginal decrease in the left pleural effusion. ADMISSION DIAGNOSES: 1. Dyspnea on presentation. 2. Possible pneumonia. 3. Acute on chronic renal failure. 4. High anion gap metabolic acidosis. 5. Status post mechanical mitral valve placement. DIAGNOSES AT THE TIME OF DISCHARGE: 1. Respiratory distress secondary to pleural effusion, pulmonary edema, and atelectasis, improved. 2. Congestive heart failure with preserved ejection fraction. 3. Bibasilar lung infiltrate, concerning for atelectasis with superimposed pneumonia. 4. Chronic kidney disease stage 5. 5. Elevated troponins secondary to demand mismatch versus subendocardial ischemia. 6. Status post mechanical mitral valve, on chronic Coumadin therapy. 7. Secondary hyperparathyroidism. 8. Metabolic acidosis. 9. Severe aortic stenosis with mitral regurgitation. 10. Wheelchair bound. 11. half-way resident. DISCHARGE MEDICATIONS: 1. Ropinirole 1 mg p.o. at bedtime. 2. Synthroid 100 mcg p.o. q.a.m. 3. Cymbalta 90 mg p.o. q.a.m. 4. Digoxin 125 mcg p.o. q.a.m. 5. Nexium 20 mg p.o. daily. 6. Furosemide 80 mg p.o. b.i.d. 7. Vitamin C 50 mg p.o. q.a.m. 8. Metolazone 2.5 p.o. q.p.m. 9. Docusate 100 mg p.o. q.a.m. p.r.n. 10. Carvedilol 3.125 b.i.d. 11. Loratadine 10 mg p.o. daily. 12. Lorazepam 1 mg p.o. at bedtime. 13. Zyvox 600 mg p.o. q.12. 14. Lasix. 15. Cefdinir 300 b.i.d. 16. Sodium bicarbonate. 17. Sensipar 300 mg b.i.d. PRESENTING COMPLAINT: Shortness of breath. HISTORY OF PRESENTING COMPLAINT: Ms. Ramirez is a 78-year-old resident of a retirement, wheelchair bound with multiple other comorbidities, who presented to the emergency department because of progressively worsening shortness of breath and abnormal labs. Upon presenting, she was evaluated. Was found to be congested with 2+ pedal edema and her creatinine had gone up to about 3.4, which seems to be her new baseline. HOSPITAL COURSE: Ms. Ramirez was admitted to [facility]. Was started on diuretic therapy because of the fluid overload and also broad-spectrum antibiotics. She continues to diurese very adequately. She has been negative balance of over 5000 mL of fluid. Her breathing has significantly improved and her lower extremity edema is now just trace. Ms. Ramirez was evaluated by cardiology up to today. A CT scan was ordered by cardiology team, which did not show any major changes except for the fluid in the lungs which is getting better. Ms. Ramirez was also evaluated by nephrology. However, per the nephrology dictation, she is not a candidate for renal replacement therapy. Ms. Ramirez continues to make adequate urine. She is slightly acidotic and has been started on oral bicarb. She is also remarkably secondary hyperparathyroid, which we think is due to the renal failure. She has been on Sensipar and she will follow up with the nephrology team. This morning, Ms. Ramirez referred to be doing a lot better. Breathing has significantly improved. Her vitals are stable with a blood pressure of 98/43, MAP of 75, her pulse is 80, respirations are 16, temperature is 98 degrees, she is saturating 97% on nasal cannula. We think she is fine for this. She is stable for discharge. She will need to repeat her BMP in 1 week to follow up on her renal and acid-base disturbances. She also needs to continue 2.5 of Coumadin since her INR is currently 3.46. She will need to recheck on her INR on a daily basis at the retirement. Other discharge instructions discussed with Ms. Ramirez and she voiced understanding. Ms. Ramirez will follow up with: 1. Dr. Quintanilla. 2. Dr. Carbajal. 3. Dr. Jamison. Time spent for discharge is 38 minutes. cc: MD Doug Yo MD Reginald D. Gladish, MD Emily M. McClure, MD
[2019-06-21] MEDS ORDERED: COUMADIN PO SCH (21:00)
--- NOTE | 2019-06-21 21:01 | NEPHROLOGY PROGRESS NOTE ---
DATE: 06/21/2019 SUBJECTIVE: She states she is about the same. She still remains very weak. Still has shortness of breath. Eating, though appetite is low. OBJECTIVE: Vital Signs: Blood pressure 98/43, heart rate 80, respirations 16, afebrile. General: No acute distress. Skin: Warm and dry. Eyes: Conjunctivae are pink. Neck: Neck veins are distended. Heart: Regular with murmur and metallic heart tones. Lungs: Decreased. No crackles. Abdomen: Soft, nontender. Bowel sounds present. Extremities: 2+ edema, primarily in the upper thighs and elbows. IMPRESSION: Chronic kidney disease stage 5. Because of her very poor functional status, she is not a candidate for renal replacement therapy. I discussed this directly with her today and she understands. Her volume status has been progressively improving with her current diuretic regimen. Her chest CT demonstrates some improvement in her pleural effusions. I certainly would be supportive of her discharge at any time. Electrolytes and acid-base are modestly out of target, with a serum bicarbonate of 18. She is on 1300 twice daily of sodium bicarbonate. No changes. cc: Hossein Carbajal MD
--- NOTE | 2019-06-23 08:51 | HISTORY AND PHYSICAL ---
This is a late dictation. The patient's PCP Dr. Maikel Aguirre. PRESENTING COMPLAINT: Abnormal labs and shortness of breath. HISTORY OF PRESENTING COMPLAINT: Ms. Ramirez is a 78-year-old female, who is a resident of [facility] with multiple comorbidities, including hypertension, hypothyroidism, CKD stage IV, status post mechanical mitral valve, atrial fibrillation, pacemaker placement, and chronic anticoagulation with Coumadin. Ms. Ramirez refers that she had just been to [facility] for the past week because of congestive symptoms. She was sent home. A couple days later, a lab test was drawn on her and was found to be abnormal, especially kidney function, so she was sent from the [facility] to [facility] for higher level of care. Ms Ramirez also refers that she has been having shortness of breath associated with orthopnea and PND. At the time of the encounter, her sister and a gentleman were also at the bedside. PAST MEDICAL HISTORY: 1. Hypothyroidism. 2. Diastolic heart failure. 3. Atrial fibrillation, status post pacemaker implantation. 4. Status post mechanical mitral valve placement on chronic Coumadin therapy. 5. Chronic kidney failure. PAST SURGICAL HISTORY: 1. Cholecystectomy. 2. Partial colectomy. 3. Right hip placement. 4. Pacemaker implantation. 5. Gastric bypass in 1966. 6. Status post mechanical mitral valve placement in 1992 in [place]. 7. Appendectomy. HOME MEDICATIONS: 1. Ropinirole 1 mg p.o. at bedtime. 2. Levothyroxine 100 mcg p.o. daily. 3. Duloxetine 90 mg p.o. q.a.m. 4. Digoxin 125 mcg p.o. q.a.m. 5. Potassium 20 mcg p.o. daily. 6. Omeprazole 20 mg p.o. daily. 7. Furosemide 80 mg b.i.d. 8. Ascorbic acid. 9. Metolazone 2.5 p.o. q.p.m. 10. Lorazepam 1 mg p.o. at bedtime. 11. Carvedilol 3.125 b.i.d. 12. Loratadine. 13. Levofloxacin 250 p.o. daily. 14. Cholecalciferol. DRUG ALLERGIES: Multiple noted on her chart. SOCIAL HISTORY: Ms. Ramirez is a resident of [facility]. She is for the most part bed- bound for the past couple months, and transfers in wheelchair. She denies any smoking or any alcohol. No street drug use. REVIEW OF SYSTEM: Fourteen point review of system conducted with Ms. Ramirez was unremarkable, except what we have in the HPI. Specifically, she denies chest pains. She denies any abdominal pain. No diarrhea. No urinary symptoms. PHYSICAL EXAMINATION: VITALS ON ADMISSION: Blood pressure is 121/60, pulse of 80, respiration is 16, temperature is 97.8 degrees. The patient was saturating 100% on room air. GENERAL EXAM: Ms. Ramirez is a 78-year-old female. She was in bed in mild respiratory distress. HEENT: Mucosa was pink and moist. Anicteric. Acyanotic. Head was normocephalic and atraumatic. NECK: Supple. There was a positive JVD. CHEST: Air entry was bilaterally reduced. There are crackles in the posterior lung carlos. There was no intercostal retraction. CARDIOVASCULAR: Regular rate and rhythm. There was an S1 metallic click. There was a 2/6 early systolic murmur in the second intercostal space at the right radiating to the neck. There is an old sternotomy scar. There is also a pacemaker generator on the left anterior chest wall. GI: Abdomen was soft, nontender. Bowel sounds were present. There was no hepatosplenomegaly. EXTREMITIES: About 2+ pedal edema. Distal pulses were present. ASSOCIATE APPLICATION DEVELOPER: Patient was awake, alert, oriented to person, place and time. She has about 3+ power in both lower extremities, but sensation was intact. Cranial nerves 2-12 were grossly examined and were unremarkable. PSYCH: Ms. Ramirez was very pleasant, had very good insight and judgment. LABORATORY DATA: WBC was 21.56, hemoglobin was 10.5, platelet count of 265. Chemistry was also reviewed. Sodium is 141, potassium 4.5, chloride 110, bicarbonate was 12, anion gap was 19. BUN of 51 and creatinine of 3.4. The patient's troponins were also minimally elevated at 1.125. IMAGING STUDIES: A chest x-ray did show pulmonary edema and pleural effusion, possibility of superimposed pneumonia cannot be excluded. A CT scan of the chest was ordered which showed moderate bilateral pleural effusions and dependent compressive atelectasis at the adjacent bilateral lobes. Underlying pneumonia in the atelectatic portions of the lower lobes cannot be excluded. An EKG on admission showed atrial fibrillation, left axis deviation, right bundle branch block, poor R-wave progression. ASSESSMENT: Ms. Ramirez is a 78-year-old female, who was recently discharged from [facility] for shortness of breath and congestive symptoms, seems to have improved. However, for the past couple days she continues having shortness of breath. A lab work was done which apparently her kidney function seems to be getting worse, so she was sent to the emergency room for medical care. ASSESSMENT: 1. Dyspnea on presentation associated with fluid overload presumably related to congestive heart failure with preserved ejection fraction. We will continue with the diuretic therapy. 2. Suspected multifocal pneumonia. We will continue with intravenous broad-spectrum antimicrobial therapy. 3. Acute on chronic renal failure. A Tom catheter will be placed, and we will monitor the intakes and outputs. We will try and avoid any nephrotoxin. We will follow up with the renal functions. We will consult Nephrology as well. 4. Elevated troponin with no electrocardiogram changes. This will be concerning for a non-ST segment elevation myocardial infarction versus type 2 myocardial infarction. Cardiology has been consulted. 5. Status post mechanical mitral valve replacement. We will continue with the Coumadin therapy. 6. Hypothyroidism. Will continue with the patient intravenous line, so we will continue with the oral levothyroxine. PLAN: So, in general, I think Ms. Ramirez is showing signs of congestive heart failure. She is going to be admitted to [facility] under telemonitoring. She has been started on IV Lasix, IV cefepime and Zyvox. We will continue to monitor her I's and O's. Will also get Cardiology and Nephrology to evaluate her. I will make further changes to the management plan during hospital course. cc: Gonzalez Anderson MD
== END 2019-06-21 15:51 | DRG 291 ==
LOC: SUPCPDRO → ED 12:10 → 2N 20:15
PROVIDERS: ATTEND Internal Medicine